=== PATIENT | female | born 1945 | race Caucasian/White ===

== ENCOUNTER 2021-08-21 06:41 | Day surgery (SDC) | payer MEDICARE ==
[2021-08-21] MEDS ORDERED: Sodium Chloride 0.9% 1,000 ML IV SCH (07:00)
[2021-08-21] MEDS ORDERED: Propofol 200 MG/20 ML SDV ONE (07:24)
[2021-08-21] MEDS ORDERED: Midazolam 1 MG/ML 2 ML SDV ONE (07:24)
[2021-08-21] MEDS ORDERED: fentaNYL 100 MCG/2 ML SDV ONE (07:24)
[2021-08-21 08:52] VITALS: BP 122/81; PULSE 71
== END 2021-08-21 09:18 | disposition home or self-care (01) ==
LOC: JP.SDS 06:41
PROVIDERS: ATTEND Surgery
DX: Z12.11 Encounter for screening for malignant neoplasm of colon (principal); K57.30 Diverticulosis of large intestine without perforation or abscess without bleeding; K63.3 Ulcer of intestine; K52.89 Other specified noninfective gastroenteritis and colitis; Z80.0 Family history of malignant neoplasm of digestive organs
CPT/HCPCS: 88305; J2250; J2704; J3010; J7030

== ENCOUNTER 2024-06-21 08:19 | Day surgery (SDC) | payer MEDICARE ==
[2024-06-21] MEDS ORDERED: fentaNYL 250 MCG/5 ML SDV ONE (08:20)
[2024-06-21] MEDS ORDERED: Rocuronium 50 MG/5 ML Vial ONE (08:21)
[2024-06-21] MEDS ORDERED: Neostigmine Methylsulfate 10 MG/10 ML MDV ONE (08:21)
[2024-06-21] MEDS ORDERED: Succinylcholine 200 MG/10 ML MDV ONE ×2 (08:21→08:51)
[2024-06-21] MEDS ORDERED: Glycopyrrolate 0.2 MG/ML 5 ML MDV ONE (08:21)
[2024-06-21] MEDS ORDERED: Propofol 200 MG/20 ML SDV ONE (08:21)
[2024-06-21] MEDS ORDERED: Ondansetron 4 MG/2 ML SDV ONE (08:21)
[2024-06-21 08:43] LABS: HEMOGLOBIN 13.9 g/dL (11.2-15.5); MEAN CORPUSCULAR HGB CONC 34.8 g/dL (31.6-35.5); RED BLOOD CELL COUNT 4.35 M/uL (3.77-5.24); WHITE BLOOD CELL COUNT,WBC 6.7 K/uL (3.2-11.0)
[2024-06-21 08:58] LABS: ANION GAP 8.2 mmol/L (5.0-14.0); CALCIUM 9.5 mg/dL (8.5-10.1); CREATININE 0.9 mg/dL (0.6-1.0); EST CRCL DRUG DOSING (CG) 50.43 mL/min; POTASSIUM,K 3.8 mmol/L (3.6-5.2)
[2024-06-21] MEDS: Lactated Ringers 1,000 ML IV SCH (09:21)
[2024-06-21] MEDS: Nozin Nasal Sanitizer NASBOTH ONE (09:22)
[2024-06-21] MEDS: ceFAZolin 1 GM in Premix Bag 1 BAG IV ONE (11:10)
[2024-06-21] MEDS: Bupivacaine 0.5% 50 ML MDV ONE (11:50)
[2024-06-21 14:36] VITALS: BP 163/83; PULSE 61
== END 2024-06-21 14:00 | disposition home or self-care (01) ==
LOC: JP.SDS 08:19
PROVIDERS: ATTEND Specialist
DX: S83.282A Other tear of lateral meniscus, current injury, left knee, initial encounter (principal); M17.12 Unilateral primary osteoarthritis, left knee; M22.42 Chondromalacia patellae, left knee; X58.XXXA Exposure to other specified factors, initial encounter
CPT/HCPCS: 29881; 36415; 80048; 85027; 93005; 93010; A9270; J0330; J0665; J0689; J1596; J2405; J2704; J2710; J3010; J7120; 01400-QZ; J3490